=== PATIENT | female | born 1940 | race Caucasian/White ===

== ENCOUNTER 2018-01-08 16:58 | Inpatient (IN) | payer OTHER ==
[~2018-01-08] VITALS: Ht 157.5 cm; Wt 59.9 kg
--- NOTE | ~2018-01-08 | O ---
[facility] [place] [address] OPERATIVE REPORT Name: ROBI GIPSON Room #: 220-P [facility] IN M.R.#: [id number] Admission: 01/08/18 Attend Phys: Mark Maldonado MD Discharge: Date of : 44 Report #: [id number] THIS REPORT FOR: //name// CC: Aurelia Maldonado DATE OF SERVICE: 01/09/2018 PREOPERATIVE DIAGNOSIS: Right reverse oblique intertrochanteric hip fracture. POSTOPERATIVE DIAGNOSIS: Right reverse oblique intertrochanteric hip fracture. PROCEDURE: Treatment of right intertrochanteric hip fracture with IM nail. SURGEON: Flako Coles MD ASSISTANT SERVICE MANAGER: Mari Lemus PA-C INDICATION FOR ASSISTANCE: Throughout the case, retraction and manipulation of the hip was required. This was afforded to me by my imaging assistant. ANESTHESIA: LMA. IMPLANTS: [employer]hew size 10 short InterTan nail with a 95/90 lag screw and compression screw and a size 30 distal locking screw. ESTIMATED BLOOD LOSS: 50 mL. COMPLICATIONS: None. SPECIMENS: None. CONDITION UPON LEAVING THE OPERATING ROOM: Stable. INDICATIONS FOR PROCEDURE: The patient is a 77-year-old female who fell and sustained a right reverse oblique intertrochanteric hip fracture. After discussion with her and her , she elected for treatment with an IM nail. DESCRIPTION OF PROCEDURE: Risks, benefits, alternatives, complications were discussed in detail with the patient including but not limited to risk of anesthesia, risk of damage to nerves, arteries, blood vessels, risk for infection, bleeding, risk for malunion, nonunion and need for reoperation. Informed consent was obtained from the patient. Right hip was appropriately marked in the preoperative holding area. IV Ancef was given for preoperative antibiotics. She was brought to the operating room and placed in supine position on operating room table. LMA anesthesia was induced without [facility] [address] [place] [address] OPERATIVE REPORT Name: ROBI GIPSON Room #: 220-P [facility] IN .R.#: [id number] Admission: 01/08/18 Attend Phys: Mark Maldonado MD Discharge: Date of : 44 Report #: [id number] complication. She was transferred to the [place] table. Right lower extremity was placed in traction. Left lower extremity was scissored. Fluoroscopic imaging was brought in to verify adequate fracture reduction as was the case. Right hip and lower extremity were prepped and draped in normal sterile fashion. Timeout was performed properly identifying the patient and procedure as well as the instrumentation. All in the operating room were in agreement. An incision 2 cm proximal to the greater trochanter was made with a 10 blade through the skin and fascia. A threaded tip guidewire was placed on the tip of the greater trochanter and taken down to the level of the lesser trochanter under AP and lateral images. Entry portal reamer was used to ream the entry portal. A ball tip guidewire was placed. An accessory incision was made to place a Navarro on the spike of the proximal fragment to hold it reduced while reaming. The femoral canal was then reamed up to a size 11. A short 10 mm InterTan nail was then placed down the femur across the fracture site. The guide for the lag screw and the compression screw was then placed and the threaded tip guidepin was placed up into the femoral head. This was measured, reamed and then a 95 lag screw and a 90 compression screw were placed. This was locked from above. A size 30 distal locking screw was then placed. After this, fluoroscopic imaging was brought in to verify adequate fracture reduction and placement of hardware as was the case. Wound was thoroughly irrigated with normal saline and closed with 2-0 Vicryl and skin esperanza. Soft dressing of Adaptic, 4 x 4s, ABD, Medipore tape were applied. The patient tolerated this procedure well and went to recovery room under care of anesthesia postoperatively. <ELECTRONICALLY SIGNED> By: Flako Coles MD 01/12/18 1058 [id number] Flako Coles MD /nt
--- NOTE | ~2018-01-08 | HC ---
[facility] [place] [address] CONSULTATION Name: ROBI GIPSON Room #: 220-P [facility] IN M.R.#: [id number] Admission: 01/08/18 Attend Phys: Mark Maldonado MD Discharge: Date of : 44 Report #: [id number] THIS REPORT FOR: //name// CC: Aurelia Maldonado DATE OF SERVICE: 01/09/2018 REASON FOR CONSULTATION: Right intertrochanteric hip fracture. HISTORY OF PRESENT ILLNESS: The patient is a 77-year-old female who fell onto her right hip and sustained a right intertrochanteric hip fracture. She brought to [facility], has been admitted for definitive treatment. PAST MEDICAL HISTORY: Significant for left hip hemiarthroplasty secondary to hip fracture, mastectomy, decompression laminectomy with fusion of the back, hysterectomy, diabetes, GERD, migraines, ulcerative colitis, hypertension, neuropathy, anemia, hypercholesterolemia. MEDICATIONS: Have been reviewed and on the chart. SOCIAL HISTORY: She lives at home and is a community ambulator, does not smoke. PHYSICAL EXAMINATION: GENERAL: This is a well-developed, well-nourished female in no acute distress. She is alert and oriented, pleasant, cooperative with exam. EXTREMITIES: Examination of right lower extremity shows to have significant pain with passive range of motion of the right hip. Her skin is intact. She is neurologically intact distally with 2+ dorsalis pedis pulse. She has brisk capillary refill. X-RAY EXAMINATION: AP and lateral of the right hip shows to have a reverse oblique intertrochanteric hip fracture. ASSESSMENT: Right intertrochanteric hip fracture. PLAN: Treatment options were discussed with the patient and she is elected for treatment with IM nail. Risks, benefits, alternatives, complications were discussed. She is understanding and wished to proceed. Thank you for allowing us to participate in care of the patient. We plan for doing surgery later this afternoon. <ELECTRONICALLY SIGNED> By: Flako Coles MD 01/12/18 1058 [id number] Flako Coles MD /nt
--- NOTE | ~2018-01-08 | EKG ---
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: : 1940 Requested By: Siria Govea Order Number: [id number] MD: Juancarlos Jacobson Measurements Intervals [place] Rate: 77 P: 28 NM: 163 QRS: -10 QRSD: 89 T: -9 QT: 394 QTc: 446 Interpretive Statements Sinus rhythm Inferior infarct, old Compared to ECG 10/06/2010 09:48:34 T-wave abnormality no longer present Possible ischemia no longer present Myocardial infarct finding still present Electronically Signed On 01-09-2018 7:04:41 CDT by Juancarlos Jacobson [email or web address] <ELECTRONICALLY SIGNED> By: Juancarlos Jacobson MD 01/09/18 0704 [id number] Juancarlos Jacobson MD /YANIQUE
[~2018-01-08 16:58] MED LIST: AMITRIPTYLINE H50 M2 PO; ASA81BEC; ASACOL400 MG; AVELOX; BISAC-EVAC10 MG; FLECTOR1 EA; FLEXERIL PO; GLUMETZA500 PO; LOVENOX SC; MYCELEX15 GM; PRILOSEC 20 MG20 MG; TOPROL XL50 MG; ULTRAM 50MG TAB50 MG; ZOCOR80 MG; [UNRECOGNIZED DRUG - OTHER]
[2018-01-08 17:05] VITALS: BP 143/70
[2018-01-08 17:38] LABS: ABSOLUTE NEUTROPHILS 9.8 thou/uL (1.4-8.2); BASOPHILS 0.6 % (0.0-2.0); EOSINOPHILS 1.9 % (0.0-3.0); HEMATOCRIT 33.1 % (37.0-47.0); HEMOGLOBIN 10.6 gm/dL (12.0-15.0); LYMPHOCYTES 17.3 % (24.0-44.0); MCH 26.4 pg (26.0-34.0); MCV 82.3 fL (80.0-100.0); PLATELET COUNT 289 thou/uL (150-400); POLYS 73.2 % (36.0-66.0); RBC 4.02 mil/uL (4.20-5.00); WBC 13.4 thou/uL (4.0-11.0)
[2018-01-08 17:48] LABS: ANION GAP 6 mmol/L (7-16); BUN 18 mg/dL (7-18); CALCIUM 8.8 mg/dL (8.5-10.1); CHLORIDE 102 mmol/L (98-107); CO2 27 mmol/L (21-32); GLUCOSE 133 mg/dL (74-106); POTASSIUM 4.2 mmol/L (3.5-5.1); SODIUM 135 mmol/L (136-145)
[2018-01-08] MEDS ORDERED: ALLOPURINOL 10100 M1 PO (17:51)
[2018-01-08] MEDS ORDERED: PHILLIPS' COLO1 EACH PO (17:52)
[2018-01-08] MEDS ORDERED: NORCO 5-325 TA1 EACH PO (17:52)
[2018-01-08] MEDS ORDERED: CRESTOR5 MG PO (17:52)
[2018-01-08] MEDS ORDERED: CENTRUM SILVER1 EAC4 PO (17:53)
[2018-01-08 17:54] LABS: ALBUMIN 3.4 g/dL (3.4-5.0); DIRECT BILIRUBIN < 0.1 mg/dL (<0.1-0.3); SGOT 26 U/L (15-37); SGPT 20 U/L (30-65); TOTAL BILIRUBIN 0.2 mg/dL (<0.1-1.0); TOTAL PROTEIN 7.2 g/dL (6.4-8.2)
[2018-01-08 17:55] VITALS: BP 143/70
[2018-01-08 17:59] LABS: APTT 25.8 Seconds (24.5-32.8)
[2018-01-08 18:08] LABS: URINE BILIRUBIN NEGATIVE (Negative); URINE BLOOD TRACE (Negative); URINE CLARITY CLEAR; URINE COLOR YELLOW; URINE GLUCOSE-RANDOM* NEGATIVE (Negative); URINE KETONES TRACE (Negative); URINE LEUKOCYTES NEGATIVE (Negative); URINE NITRITE NEGATIVE (Negative); URINE PROTEIN (DIPSTICK) NEGATIVE (Negative); URINE UROBILINOGEN 0.2 E.U./dl (0.2-1.0)
[2018-01-08 18:26] VITALS: BP 162/71
[2018-01-08 18:43] VITALS: BP 174/77
[2018-01-09 04:17] VITALS: BP 115/60
[2018-01-09 06:29] LABS: HEMATOCRIT 30.2 % (37.0-47.0); HEMOGLOBIN 10.1 gm/dL (12.0-15.0); MCH 27.3 pg (26.0-34.0); MCHC 33.5 g/dL (28.0-37.0); MCV 81.5 fL (80.0-100.0); RBC 3.71 mil/uL (4.20-5.00); RDW 15.9 % (10.5-14.5); WBC 10.7 thou/uL (4.0-11.0)
[2018-01-09 06:38] LABS: CALCIUM 8.9 mg/dL (8.5-10.1); CREATININE 0.8 mg/dL (0.6-1.0); POTASSIUM 4.1 mmol/L (3.5-5.1)
[2018-01-09 09:20] VITALS: BP 124/77
[2018-01-09 12:39] VITALS: BP 128/69
[2018-01-09 15:58] VITALS: BP 137/72
[2018-01-09 20:00] VITALS: BP 149/74
[2018-01-10] VITALS: BP 121/67
[2018-01-10 04:00] VITALS: BP 160/74
[2018-01-10 06:18] LABS: ABSOLUTE NEUTROPHILS 11.9 thou/uL (1.4-8.2); HEMOGLOBIN 9.1 gm/dL (12.0-15.0); LYMPHOCYTES 6.4 % (24.0-44.0); MCH 26.7 pg (26.0-34.0); MCHC 32.6 g/dL (28.0-37.0); MCV 82.1 fL (80.0-100.0); MONOCYTES 6.3 % (1.0-8.0); PLATELET COUNT 250 thou/uL (150-400); POLYS 87.3 % (36.0-66.0); RBC 3.41 mil/uL (4.20-5.00); WBC 13.6 thou/uL (4.0-11.0)
[2018-01-10 06:25] LABS: CALCIUM 8.9 mg/dL (8.5-10.1); POTASSIUM 4.2 mmol/L (3.5-5.1)
[2018-01-10 07:19] VITALS: BP 130/78
[2018-01-10 11:56] LABS: % SATURATION 4 % (20-39); IRON 14 ug/dL (50-170); TIBC 366 ug/dL (250-450)
[2018-01-10 12:35] LABS: FERRITIN 34 ng/mL (8-252)
[2018-01-10 16:25] VITALS: BP 138/68
[2018-01-10 20:00] VITALS: BP 128/74
[2018-01-11 04:00] VITALS: BP 103/60
[2018-01-11 05:12] LABS: GLYCOHEMOGLOBIN (HGB A1C) 6.1 % (4.8-5.6)
[2018-01-11 06:00] LABS: HEMATOCRIT 25.9 % (37.0-47.0); HEMOGLOBIN 8.4 gm/dL (12.0-15.0); MCH 26.6 pg (26.0-34.0); MCHC 32.6 g/dL (28.0-37.0); MCV 81.7 fL (80.0-100.0); RBC 3.17 mil/uL (4.20-5.00); RDW 15.8 % (10.5-14.5); WBC 11.7 thou/uL (4.0-11.0)
[2018-01-11 08:15] VITALS: BP 108/57
[2018-01-11 10:53] LABS: MAGNESIUM 1.5 mg/dL (1.8-2.4); POTASSIUM 3.5 mmol/L (3.5-5.1)
[2018-01-11 17:17] VITALS: BP 100/51
[2018-01-11 20:00] VITALS: BP 112/65
[2018-01-12 07:05] VITALS: BP 134/73
[2018-01-12 07:29] LABS: ABSOLUTE NEUTROPHILS 6.8 thou/uL (1.4-8.2); BASOPHILS 0.4 % (0.0-2.0); EOSINOPHILS 2.4 % (0.0-3.0); HEMATOCRIT 24.8 % (37.0-47.0); HEMOGLOBIN 8.3 gm/dL (12.0-15.0); LYMPHOCYTES 21.6 % (24.0-44.0); MCH 27.5 pg (26.0-34.0); MCHC 33.5 g/dL (28.0-37.0); MCV 81.9 fL (80.0-100.0); MONOCYTES 11.5 % (1.0-8.0); PLATELET COUNT 273 thou/uL (150-400); POLYS 64.1 % (36.0-66.0); RBC 3.03 mil/uL (4.20-5.00); WBC 10.6 thou/uL (4.0-11.0)
[2018-01-12 07:45] LABS: CALCIUM 9.2 mg/dL (8.5-10.1); MAGNESIUM 1.7 mg/dL (1.8-2.4); POTASSIUM 3.9 mmol/L (3.5-5.1)
[2018-01-12] MEDS ORDERED: PERCOCET 5-3251 EACH PO (11:17)
[2018-01-12] MEDS ORDERED: IRON325 PO (11:17)
[2018-01-12 12:27] VITALS: BP 134/73
[2018-01-12] MEDS ORDERED: ENOXAPARIN40 MG/0.1 SUBQ (16:49)
== END 2018-01-12 17:39 | disposition home health service (06) | DRG 481 ==
LOC: ER 16:58 → 4N 17:24 → EROBS 17:24 → 4W 18:27 → 4N 01-09 05:05 → SICU 01-11 18:33 → ENTRNSPT 01-12 17:23 → SICU 01-12 17:39
PROVIDERS: Emergency Medicine; Hospitalist; Internal Medicine; Orthopaedic Surgery; Registered Nurse
PROC: 0QH606Z Insertion of Intramedullary Internal Fixation Device into Right Upper Femur, Open Approach (ICD-10-PCS; principal; 2018-01-09)
DX: S72.141A Displaced intertrochanteric fracture of right femur, initial encounter for closed fracture (principal); E44.1 Mild protein-calorie malnutrition; E11.9 Type 2 diabetes mellitus without complications; K21.9 Gastro-esophageal reflux disease without esophagitis; G43.909 Migraine, unspecified, not intractable, without status migrainosus; I10 Essential (primary) hypertension; E11.40 Type 2 diabetes mellitus with diabetic neuropathy, unspecified; E78.00 Pure hypercholesterolemia, unspecified; Z96.642 Presence of left artificial hip joint; M06.9 Rheumatoid arthritis, unspecified; K59.00 Constipation, unspecified; E87.6 Hypokalemia; E83.42 Hypomagnesemia; F64.9 Gender identity disorder, unspecified; Z79.899 Other long term (current) drug therapy; Z90.11 Acquired absence of right breast and nipple; Z90.710 Acquired absence of both cervix and uterus; Z88.6 Allergy status to analgesic agent; W18.39XA Other fall on same level, initial encounter; Y93.89 Activity, other specified; Y92.89 Other specified places as the place of occurrence of the external cause; Y99.8 Other external cause status
CPT/HCPCS: 10040; 10790; 15002; 50010; 50101; 50386; 51412; 51538; 52304; 55445; 56524; 57092; 62110; 62900; 70005